=== PATIENT | female | born 1985 | race African-American/Black ===

== ENCOUNTER 2023-10-01 03:46 | Emergency (ER) | payer MEDICAID, OTHER ==
[~2023-10-01] VITALS: Ht 170.2 cm; Wt 70.0 kg
[2023-10-01 03:53] VITALS: O2SAT 100
[2023-10-01] MEDS ORDERED: FLUORESCEIN SODIUM 1MG/STRIP RIGHTEYE ONE (04:00)
[2023-10-01] MEDS ORDERED: TETANUS, DIPHTHERIA, PERTUSSIS VAC/PF 0.5ML (>10YR OLD) IM ONE (04:00)
[2023-10-01] MEDS ORDERED: HYDROCODONE/ACETAMINOPHEN 5/325MG TABLET PO ONE (04:00)
[2023-10-01] MEDS ORDERED: TETRACAINE 0.5% OPHTH DROPS 4ML RIGHTEYE ONE (04:00)
[2023-10-01] MEDS ORDERED: LIDOCAINE HCL/PF 1% 10 MG/ML 5ML VIAL INFIL ONE ×2 (04:00→12:45)
[2023-10-01] MEDS ORDERED: BACITRACIN ZINC OINT UDPKT TOP ONE (04:00)
[2023-10-01] MEDS ORDERED: ONDANSETRON HCL 4MG/2ML INJ IV ONE (04:30)
[2023-10-01] MEDS ORDERED: LORAZEPAM 2MG/ML CPJ IV ONE (04:30)
[2023-10-01] MEDS ORDERED: LEVETIRACETAM 1000MG PREMIX 100 ML IV ONE (04:30)
[2023-10-01] MEDS ORDERED: LORAZEPAM 2MG/ML CPJ ONE (04:30)
[2023-10-01 04:38] LABS: HCG SCREEN NEGATIVE
[2023-10-01] MEDS ORDERED: LIDOCAINE HCL/PF 1% 2ML VIAL INFIL ONE (12:45)
[2023-10-01] MEDS ORDERED: IBUP-1523 MT (13:10)
[2023-10-01] MEDS ORDERED: TOPUD MT (13:10)
[2023-10-01 13:46] VITALS: BP 158/90; PULSE 80; RESP 16; TEMP 98.3
== END 2023-10-01 13:48 | disposition home or self-care (01) ==
LOC: ER 03:50
DX: S01.81XA Laceration without foreign body of other part of head, initial encounter (principal); Y08.89XA Assault by other specified means, initial encounter; Y93.89 Activity, other specified; Y92.89 Other specified places as the place of occurrence of the external cause; Y99.8 Other external cause status
CPT/HCPCS: 84703; 73030; 73562; 70450; 70486; 90715; 12015; 90471; 96365; 96366; 96375; 99285; J1953; J3490; J2060; J2405; Z7610 ×2

== ENCOUNTER 2024-10-05 09:39 | Emergency (ER) | payer OTHER ==
[~2024-10-05] VITALS: Ht 175.3 cm; Wt 95.0 kg
[~2024-10-05 09:39] MED LIST: IBUP-1523 MT; TOPUD MT
[2024-10-05 09:40] VITALS: O2SAT 95
[2024-10-05 11:00] LABS: HEMATOCRIT. 38.5 % (36.0-48.0); MEAN CORPUSCULAR HEMOGLOBIN 35.8 pg (28.0-32.0); MEAN CORPUSCULAR HGB CONC 33.7 g/dL (31.0-37.0); MEAN CORPUSCULAR VOLUME 106.4 fL (81.0-99.0); PLATELET 224 x1000/uL (130-400); RED BLOOD CELL COUNT 3.62 mill/uL (4.2-5.4); RED CELL DISTRIBUTION WIDTH 13.8 % (11.6-14.6); WHITE BLOOD COUNT 2.5 x1000/uL (4.5-11.0)
[2024-10-05 11:03] LABS: DIFFERENTIAL COMMENT 1
[2024-10-05 11:08] LABS: INR 0.9; PROTHROMBIN TIME 10.6 sec (9.6-11.0)
[2024-10-05 11:14] LABS: CHLORIDE 109 mEq/L (98-107); POTASSIUM 3.9 mEq/L (3.5-5.1); SODIUM 139 mEq/L (136-145)
[2024-10-05 11:15] LABS: CARBON DIOXIDE 27 mEq/L (21-32)
[2024-10-05 11:16] LABS: CALCIUM 9.3 mg/dL (8.7-10.4)
[2024-10-05 11:20] LABS: CREATININE 0.7 mg/dL (0.6-1.0); GLUCOSE 86 mg/dL (70-105); UREA NITROGEN BLOOD 7 mg/dL (9-23)
[2024-10-05 11:38] LABS: CLARITY URINE TURBID (CLEAR); COLOR URINE RED (YELLOW); GLUCOSE URINE NEGATIVE (NEGATIVE); KETONES URINE NEGATIVE (NEGATIVE); LEUKOCYTE ESTERASE URINE 1+ (NEGATIVE); NITRITE URINE NEGATIVE (NEGATIVE); OCCULT BLOOD URINE 3+ (NEGATIVE); PROTEIN URINE 2+ (NEGATIVE); SPECIFIC GRAVITY URINE 1.023 (1.005-1.030)
[2024-10-05 11:43] LABS: HCG SCREEN NEGATIVE
[2024-10-05 11:53] LABS: SQUAMOUS EPITHELIAL CELL URINE 3+ /lpf (RARE/1+)
[2024-10-05 11:54] LABS: BACTERIA URINE 4+; RBC URINE 50-100 /hpf (0-2)
[2024-10-05 11:55] LABS: WBC URINE 0-2 /hpf (0-2)
[2024-10-05] MEDS: SODIUM CHLORIDE 0.9% 1,000 ML IV ONE (12:28)
[2024-10-05] MEDS: KETOROLAC 30MG/ML VIAL IV ONE (12:30)
[2024-10-05 12:39] LABS: PLATELET ESTIMATE NORMAL
[2024-10-05] MEDS ORDERED: IBUP-2030 MT (14:13)
[2024-10-05 14:35] VITALS: BP 120/84; PULSE 78; RESP 16; TEMP 36.66960; O2SAT 97
== END 2024-10-05 14:32 | disposition home or self-care (01) ==
LOC: ER 09:50
DX: N93.9 Abnormal uterine and vaginal bleeding, unspecified (principal); J45.909 Unspecified asthma, uncomplicated; I10 Essential (primary) hypertension
CPT/HCPCS: 80048; 81003; 84703; 85025; 85610; 86850; 86900; 86901; 36415; 76830; 76856; 96361; 96374; 99285; J1885; J7030; Z7610 ×2

== ENCOUNTER 2024-12-02 04:52 | Emergency (ER) | payer OTHER ==
[~2024-12-02] VITALS: Ht 180.3 cm; Wt 87.0 kg
[~2024-12-02 04:52] MED LIST changes: +IBUP-2030 MT
[2024-12-02 04:58] VITALS: O2SAT 100
[2024-12-02] MEDS ORDERED: ONDANSETRON HCL 4MG/2ML INJ IV STA (06:11)
[2024-12-02] MEDS ORDERED: KETOROLAC 30MG/ML VIAL IV STA (06:11)
[2024-12-02] MEDS: SODIUM CHLORIDE 0.9% 1,000 ML IV ONE (06:15)
[2024-12-02 08:24] LABS: CHLORIDE 105 mEq/L (98-107); POTASSIUM 3.3 mEq/L (3.5-5.1); SODIUM 137 mEq/L (136-145)
[2024-12-02 08:25] LABS: CALCIUM 8.8 mg/dL (8.7-10.4); CARBON DIOXIDE 25 mEq/L (21-32)
[2024-12-02 08:29] LABS: BASOPHILS % 0.3 % (0.0-2.0); DIFFERENTIAL COMMENT 0; EOSINOPHILS % 0.2 % (0.0-5.0); HEMATOCRIT. 35.5 % (36.0-48.0); HEMOGLOBIN. 12.3 g/dL (12.0-16.0); LYMPHOCYTES % 14.9 % (20.0-50.0); MEAN CORPUSCULAR HEMOGLOBIN 35.4 pg (28.0-32.0); MEAN CORPUSCULAR HGB CONC 34.7 g/dL (31.0-37.0); MEAN CORPUSCULAR VOLUME 101.9 fL (81.0-99.0); MEAN PLATELET VOLUME 7.1 fl (7.4-10.4); MONOCYTES % 10.8 % (2.0-8.0); NEUTROPHILS % 73.8 % (40.0-76.0); PLATELET 239 x1000/uL (130-400); RED BLOOD CELL COUNT 3.48 mill/uL (4.2-5.4); WHITE BLOOD COUNT 7.7 x1000/uL (4.5-11.0)
[2024-12-02 08:30] LABS: CREATININE 0.6 mg/dL (0.6-1.0); GLUCOSE 91 mg/dL (70-105); UREA NITROGEN BLOOD 5 mg/dL (9-23)
[2024-12-02] MEDS ORDERED: FLUT9.9S BOTHNSTRLS (08:50)
[2024-12-02] MEDS ORDERED: GUAI600T26 PO (08:50)
[2024-12-02] MEDS ORDERED: TOPUD PO (08:50)
[2024-12-02 08:51] LABS: TROPONIN I HIGH SENSITIVITY < 4 ng/L (3.0-34)
[2024-12-02 09:57] VITALS: BP 144/91; PULSE 88; RESP 18; TEMP 37.11408; O2SAT 100
== END 2024-12-02 10:00 | disposition home or self-care (01) ==
LOC: ER 04:52
DX: B34.9 Viral infection, unspecified (principal); E78.00 Pure hypercholesterolemia, unspecified; J45.909 Unspecified asthma, uncomplicated; I10 Essential (primary) hypertension; Z20.822 Contact with and (suspected) exposure to COVID-19; Z86.59 Personal history of other mental and behavioral disorders
CPT/HCPCS: 80048; 85025; 84484; 87804 ×2; 36415; 71045; 96360; 96361; 99284; 87426; J1885; J2405; J7030; Z7610

== ENCOUNTER 2025-09-05 10:14 | Emergency (ER) | payer OTHER ==
[~2025-09-05] VITALS: Ht 167.6 cm; Wt 95.0 kg
[~2025-09-05 10:14] MED LIST changes: +FLUT9.9S BOTHNSTRLS; +GUAI600T26 PO; +TOPUD PO
[2025-09-05 10:17] VITALS: O2SAT 99
[2025-09-05] MEDS ORDERED: KEPP500 PO (10:24)
[2025-09-05] MEDS: LACTATED RINGERS 1,000 ML IV SCH (10:42)
[2025-09-05] MEDS: LEVETIRACETAM 500MG PREMIX 100 ML IV ONE ×2 (10:42→11:26)
[2025-09-05] MEDS: MAGNESIUM 2 G PREMIX 50 ML IV ONE (11:10)
[2025-09-05 12:01] LABS: BASOPHILS % 0.6 % (0.0-2.0); EOSINOPHILS % 3.2 % (0.0-5.0); HEMATOCRIT. 38.8 % (36.0-48.0); HEMOGLOBIN. 13.1 g/dL (12.0-16.0); LYMPHOCYTES % 39.3 % (20.0-50.0); MEAN PLATELET VOLUME 7.1 fl (7.4-10.4); MONOCYTES % 14.4 % (2.0-8.0); NEUTROPHILS % 42.5 % (40.0-76.0); PLATELET 204 x1000/uL (130-400); RED BLOOD CELL COUNT 3.58 mill/uL (4.2-5.4); RED CELL DISTRIBUTION WIDTH 15.0 % (11.6-14.6)
[2025-09-05 12:23] LABS: HCG SCREEN NEGATIVE
[2025-09-05 12:30] LABS: CREATININE 0.5 mg/dL (0.6-1.0); UREA NITROGEN BLOOD < 5 mg/dL (9-23)
[2025-09-05 12:32] LABS: ASPARTATE AMINOTRANSFERASE 67 IU/L (<34); BILIRUBIN TOTAL 0.5 mg/dL (0.1-1.0); PROTEIN TOTAL 7.6 g/dL (6.0-8.3)
[2025-09-05] MEDS: KETOROLAC 15MG/ML VIAL IV ONE (13:17)
[2025-09-05 14:59] VITALS: BP 133/95; PULSE 81; RESP 16; TEMP 36.8; O2SAT 100
== END 2025-09-05 15:07 | disposition left against medical advice (07) ==
LOC: ER 10:14 → CANBEDREQ 12:50 → ER 15:07 → CMPBEDREQ 16:52
DX: R56.9 Unspecified convulsions (principal); R94.31 Abnormal electrocardiogram [ECG] [EKG]; D72.819 Decreased white blood cell count, unspecified; Z79.899 Other long term (current) drug therapy
CPT/HCPCS: 99291; 96365; 70450; 96366; 96375; 80053; 82550; 84703; 85025; 36415; 93005; 96368; J1885; J1953; J3475